=== PATIENT | female | born 1980 | race Caucasian/White ===

== ENCOUNTER 2017-04-29 17:49 | Emergency (ER) | payer OTHER ==
[2017-04-29] MEDS: oxyCODONE/ACETAMINOPHEN 5/325 TABLET PO ONE ×2 (18:17→19:18)
[2017-04-29] MEDS: BUTORPHANOL TARTRATE 2 MG/ML VIAL IM ONE (18:18)
[2017-04-29] MEDS: LORazepam 1 MG TABLET PO ONE (18:18)
[2017-04-29 18:21] LABS: APPEARANCE,URINE Clear (CLEAR); COLOR,URINE Yellow (YELLOW); OCCULT BLOOD,URINE Trace-lysed (NEGATIVE); PH URINE 5.5 (5.0 - 8.0); UROBILINOGEN URINE 0.2 Eu (0.2-1.0)
[2017-04-29 18:24] LABS: BASOPHILS % 0.5 (0.0-1.5); EOSINOPHILS % 1.8 % (0.0-6.8); MEAN CORPUSCULAR HEMOGLOBIN 32.1 pg (28.0-34.0); MEAN CORPUSCULAR VOLUME 89.7 fl (80.0-100.0); MONOCYTES % 4.4 % (0.0-11.0); NEUTROPHILS # 4.3 # k/uL (1.4-7.7)
[2017-04-29 18:38] LABS: eGFR (African) > 60; eGFR (Non-African) > 60
--- NOTE | 2017-04-29 19:10 | ED Physician Documentation ---
General Adult - HISTORIAN Historian: patient - HPI Stated Complaint: HTN, Dental pain Chief Complaint: General Adult Further Comments: yes (36 year old female patient presents with complaints of dental pain and hypertension. Patient reports having tooth extracted from right bottom back molar, was seen in PCP office on Sunday with hypertension and pain - no BP medication started. Patient currently , 10 months old. Out of her [place]. Patient reports taking her 's HCTZ/ lisinopril prior to coming to Er.) - ROS CONST: other (dental extraction) EYES/ENT: none CVS/RESP: other (hypertension) GI/: none MS/SKIN/LYMPH: none NEURO/PSYCH: denies: headache, fainting, dizziness, tingling, numbness, difficulty walking, difficulty with speech, anxiety, depression, other - PAST HX Past History: hypertension (gestational HTN) Other History: none Allergies/Adverse Reactions: Allergies Allergy/AdvReac Type Severity Reaction Status Date / Time aspirin AdvReac Vomiting Verified 04/29/17 18:18 Home Medications: Ambulatory Orders Medication Instructions Recorded Fluticasone Propionate [Flonase 1 spray NS DAILY 04/29/17 Nasal [place]] Pnv95/Ferrous Fumarate/FA 1 each PO DAILY 04/29/17 [ Caplet] - SOCIAL HX Smoking History: non-smoker - FAMILY HX Family History: No - VITAL SIGNS Vital Signs: Vital Signs Temp Pulse Resp BP Pulse Ox 98.4 F 93 H 20 178/103 98 04/29/17 18:19 04/29/17 18:19 04/29/17 18:19 04/29/17 18:19 04/29/17 18:19 - REVIEWED ASSESSMENTS Nursing Assessment Reviewed: Yes Vitals Reviewed: Yes Progress - Progress Progress: Patient reports taking her last norco this morning at 0930 and has been using ibuprofen every 4 hours. Instructed patient to take ibuprofen every 8 hours. Medicated in Er with ativan for anxiety and percocet for pain. Instructed patient to call ambulance driver, explained she could not drive home. Explained DUI. BP improved with percocet and ativan. Will not start anti-hypertension medications at this time as patient is breast feeding. Resting heart rate 68-73 , do not want to add beta shelbie. Instructed patient to see PCP in the next 24 hours for recheck and call dentist in the morning for evaluation of dry socket. At discharge, patient went to waiting room to wait on ambulance driver. Was seen leaving ER driving her mini-van. ED Results Lab/Radiology - Lab Results Lab Results: Lab Results 04/29/17 04/29/17 04/29/17 18:27 17:58 17:58 WBC 6.80 K/ul K/ul (4.00-12.00) RBC 4.49 M/ul M/ul (3.90-5.20) Hgb 14.4 g/dL g/dL (12.0-16.0) Hct 40.2 % % (34.5-46.5) MCV 89.7 fl fl (80.0-100.0) MCH 32.1 pg pg (28.0-34.0) MCHC 35.8 g/dL g/dL (30.0-36.0) RDW 12.6 % % (11.3-14.3) Plt Count 302 K/mm3 K/mm3 (130-400) Neut % (Auto) 62.5 % % (39.0-79.0) Lymph % (Auto) 28.7 % % (16.0-50.0) Steele % (Auto) 4.4 % % (0.0-11.0) Eos % (Auto) 1.8 % % (0.0-6.8) Baso % (Auto) 0.5 (0.0-1.5) Neut # (Auto) 4.3 # k/uL # k/uL (1.4-7.7) Lymph # (Auto) 2.0 # k/uL # k/uL (0.6-4.0) Steele # (Auto) 0.3 # k/uL # k/uL (0.0-0.9) Eos # (Auto) 0.1 # k/uL # k/uL (0.0-0.6) Baso # (Auto) 0.0 # k/uL # k/uL (0.0-0.5) Reactive Lymphs % 2.1 % % (0.0-5.0) Reactive Lymphs # 0.1 # k/uL # k/uL (0.0-0.8) Sodium 145 mmol/L mmol/L (136-145) Potassium 3.4 mmol/L L mmol/L (3.5-5.0) Chloride Pending Carbon Dioxide 30 mmol/L mmol/L (20-32) BUN 15 mg/dL mg/dL (10-26) Creatinine 0.6 mg/dL mg/dL (0.4-1.5) Estimated Creat Clear 191 Est GFR ( Amer) > 60 (60 - ) Est GFR (Non-Af Amer) > 60 (60 - ) Glucose 113 mg/dL H mg/dL (70-99) Calcium 10.0 mg/dL mg/dL (8.5-10.5) Total Bilirubin 0.8 mg/dL mg/dL (0.2-1.2) AST 15 U/L U/L (0-41) ALT 12 U/L U/L (0-45) Alkaline Phosphatase 96 U/L U/L (46-116) Total Protein 7.8 g/dL g/dL (6.0-8.5) Albumin 4.7 g/dL g/dL (3.0-5.5) Urine Color Urine Appearance Urine pH Ur Specific Gary Urine Protein Urine Ketones Urine Occult Blood Urine Nitrite Urine Bilirubin Urine Urobilinogen Ur Leukocyte Esterase Urine Glucose Urine HCG, Qual Negative (NEGATIVE) 04/29/17 17:58 WBC RBC Hgb Hct MCV MCH MCHC RDW Plt Count Neut % (Auto) Lymph % (Auto) Steele % (Auto) Eos % (Auto) Baso % (Auto) Neut # (Auto) Lymph # (Auto) Steele # (Auto) Eos # (Auto) Baso # (Auto) Reactive Lymphs % Reactive Lymphs # Sodium Potassium Chloride Carbon Dioxide BUN Creatinine Estimated Creat Clear Est GFR ( Amer) Est GFR (Non-Af Amer) Glucose Calcium Total Bilirubin AST ALT Alkaline Phosphatase Total Protein Albumin Urine Color Yellow (YELLOW) Urine Appearance Clear (CLEAR) Urine pH 5.5 (5.0 - 8.0) Ur Specific Gary 1.015 (1.010-1.030) Urine Protein Negative mg/dL mg/dL (NEGATIVE) Urine Ketones Trace mg/dL mg/dL (NEGATIVE) Urine Occult Blood Trace-lysed (NEGATIVE) Urine Nitrite Negative (NEGATIVE) Urine Bilirubin Negative (NEGATIVE) Urine Urobilinogen 0.2 Eu Eu (0.2-1.0) Ur Leukocyte Esterase Negative (NEGATIVE) Urine Glucose Negative mg/dL mg/dL (NEGATIVE) Urine HCG, Qual - Orders Orders: ED Orders Category Date Time Status CBC/PLATELET/DIFF Stat Lab 04/29/17 17:58 Completed CMP Stat Lab 04/29/17 17:58 Results UA W/MICRO IF INDICATED Stat Lab 04/29/17 17:58 Completed URINE HCG Stat Lab 04/29/17 18:27 Completed Butorphanol Tartrate [Stadol] Med 04/29/17 17:59 Discontinued 1 mg IM NOW ONE LORazepam [Ativan] Med 04/29/17 18:10 Discontinued 1 mg PO NOW ONE oxyCODONE HCL/ACETAMINOPHEN [Percocet 5-325 mg Tablet] Med 04/29/17 18:09 Discontinued 1 each PO NOW ONE oxyCODONE HCL/ACETAMINOPHEN [Percocet 5-325 mg Tablet] Med 04/29/17 19:07 Once 2 each PO NOW ONE General Adult Physical Exam - PHYSICAL EXAM GENERAL APPEARANCE: anxious EENT: eye inspection normal, DENNIS, other (#48, open dry socket) RESPIRATORY: no resp distress, chest non-tender, breath sounds normal CVS: reg rate & rhythm, heart sounds normal, equal pulses, no murmur, no gallop , PMI nml, no JVD, no friction rub, 24 ABDOMEN: soft, no organomegaly, normal bowel sounds, no abdominal bruit, no distension SKIN: normal color, warm/dry, NR, INT, PAL, DR EXTREMITIES: non-tender, normal range of motion, no evidence of injury, no edema , J, BUSINESS INTELLIGENCE DIRECTOR NEURO: oriented X3, CN's nml as tested, motor nml, sensation nml, mood/affect nml Discharge Clincal Impression: Pain, dental, Dry tooth socket, Intermittent hypertension Referrals: Erick Montelongo MD [Primary Care Provider] - 2 Days Additional Instructions: Call the dentist in the morning See your Primary care doctor in 1-2 days for a BP recheck. You can take: Ibuprofen 800mg every 8 hours (do not exceed this dose) You can add Tylenol, but limit your total to 4000mg in 24 hours. 1 [place]ulah tab has 325mg of tylenol. Home Medications: Ambulatory Orders Fluticasone Propionate [Flonase Nasal [place]] 1 spray NS DAILY 04/29/17 Pnv95/Ferrous Fumarate/FA [ Caplet] 1 each PO DAILY 04/29/17 Condition: Stable Decision to Admit: NO Decision Time: 19:09
[2017-04-29 19:20] VITALS: BP 126/91
== END 2017-04-29 19:15 ==
LOC: ED 17:49
DX: K08.89 Other specified disorders of teeth and supporting structures (principal); I10 Essential (primary) hypertension
CPT/HCPCS: 80053; 81002; 81025; 85025; A9270; 99283